=== PATIENT | male | born 2000 | race Caucasian/White ===

== ENCOUNTER 2020-10-10 14:36 | Outpatient (CLI) | payer SELFPAY ==
[2020-10-10 16:09] LABS: Liquefaction Semen Complete in 30 min. (<30 minutes); Semen Color Opaque (Grey-opaque); Semen Immotility 40 %; Semen Non-Progressive Motility 10 %; Semen Progressive Motility 50 % (>32); Semen Total Motility 60 (>40% (PM+NP)); Semen Viscosity Not Increased (Not Increa.); Sperm Count 12.5 Mil/mL (60-150 million/mL); Volume Semen 1.5 mL (1.5-5.0)
[2020-10-10 16:10] LABS: Semen Morphology Result to Follow
[2020-10-16 13:10] LABS: Fructose, Semen 217 mg/dL (150-600)
== END 2020-10-10 14:37 | disposition home or self-care (01) ==
LOC: CHSLAB 14:38
PROVIDERS: Visit Provider Obstetrics & Gynecology
DX: N46.9 Male infertility, unspecified (principal)
CPT/HCPCS: 82757; 88160; 89320